=== PATIENT | female | born 1970 ===

== ENCOUNTER 2016-08-30 15:00 | Observation (INO) | payer BC, OTHER ==
[2016-08-30] MEDS ORDERED: HYDROmorphone 1 MG/ML Syringe IV ONE ×2 (15:08→16:01)
--- NOTE | 2016-08-30 15:11 | EDM.PDOC ---
ED HPI GENERAL MEDICAL PROBLEM - General Chief Complaint: Upper Extremity Injury/Pain Stated Complaint: POSSIBLE LEFT ARM FRACTURE Time Seen by Provider: 08/30/16 15:05 Source of Information: Reports: Patient, EMS History Limitations: Reports: No Limitations - History of Present Illness INITIAL COMMENTS - FREE TEXT/NARRATIVE: HISTORY AND PHYSICAL: History of present illness: [Patient comes to the emergency room via EMS with complaints of L arm pain. She was washing her feet in the bathroom sink when she slipped and fell landing on her left forearm. She complains of pain and deformity to her forearm. Has had bleeding from a laceration. Occurred just prior to arrival in the ER. She denies hitting her head, losing consciousness, any other injuries. Has not had anything to eat or drink today.] Review of systems: As per history of present illness and below otherwise all systems reviewed and negative. Past medical history: As per history of present illness and as reviewed below otherwise noncontributory. Surgical history: As per history of present illness and as reviewed below otherwise noncontributory. Social history: No reported history of drug or alcohol abuse. Family history: As per history of present illness and as reviewed below otherwise noncontributory. Physical exam: HEENT: Atraumatic, normocephalic. Lungs: Clear to auscultation bilaterally. Cardiac: Regular rate rhythm. Extremities: Left forearm swelling and deformity. 1 cm laceration to radial mid left forearm. Is placed in an immobilizing device prior to arrival in the ER. Refill less than 2 seconds. Neuro: Awake, alert, oriented. Motor and sensory unremarkable throughout. Diagnostics: [X-ray left forearm] Therapeutics: [Dilaudid 0.5 mg IV, Dilaudid 1mg IV, Ativan 1mg IV] Impression: [Open Radial and ulnar distal mid shaft fractures, L forearm] Plan: [Dr. Berenice Quezada, orthopedist franchise field consultant, is contacted at 1600. OLIVA Currie , in the ER to evaluate patient at [phone].] Definitive disposition and diagnosis as appropriate pending reevaluation and review of above. Left Arm Pain Score (Numeric/FACES): 9 - Related Data Allergies Allergy/AdvReac Type Severity Reaction Status Date / Time Salicylates * [Salicylates] Allergy Fainting Verified 04/28/14 14:55 Sulfa (Sulfonamide Allergy Disorientat Verified 02/08/14 15:29 Antibiotics) ion Home Meds: Home Meds . [No Known Home Meds] 02/08/14 [History] Social & Family History - Tobacco Use Smoking Status *Q: Never Smoker Second Hand Smoke Exposure: No - Alcohol Use Days Per Week of Alcohol Use: 0 Number of Drinks Per Day: 0 Total Drinks Per Week: 0 - Recreational Drug Use Recreational Drug Use: No Drug Use in Last 12 Months: Yes Review of Systems - Review of Systems Review Of Systems: ROS reveals no pertinent complaints other than HPI. ED EXAM, GENERAL - Physical Exam Exam: See Below Course - Vital Signs Last Recorded V/S: Last Vital Signs Temp 99.0 F 08/30/16 15:07 Pulse 78 08/30/16 15:07 Resp 18 08/30/16 15:07 BP 139/93 H 08/30/16 15:07 Pulse Ox 98 08/30/16 15:07 - Orders/Labs/Meds Meds: Medications Discontinued Medications Generic Name Dose Route Start Last Admin Trade Name Gatito PRN Reason Stop Dose Admin Hydromorphone HCl 0.5 mg 08/30/16 15:08 08/30/16 15:14 Dilaudid IV 08/30/16 15:09 0.5 mg ONETIME ONE Administration Hydromorphone HCl 1 mg 08/30/16 16:01 08/30/16 16:05 Dilaudid IV 08/30/16 16:02 1 mg ONETIME ONE Administration Lorazepam 1 mg 08/30/16 16:00 08/30/16 16:06 Ativan IVPUSH 08/30/16 16:01 1 mg ONETIME ONE Administration Departure - Departure Time of Disposition: 16:25 Disposition: Admitted As Inpatient 66 Clinical Impression: Forearm fracture - Discharge Information Forms: ED Department Discharge
[2016-08-30] MEDS ORDERED: LORazepam 2 MG/ML MDV IVPUSH ONE (16:00)
--- NOTE | 2016-08-30 16:02 | CR ---
EXAMINATION: Left forearm HISTORY: Fall COMPARISON: None TECHNIQUE: 2 views FINDINGS: There are displaced overlapping mid to distal radius and ulna diaphysis fractures noted. A pproximately 2.6 cm of overlap of the radial component. Remaining osseous structures and joint space s appear grossly intact. Mild overlying soft tissue swelling. IMPRESSION: Displaced and overlapping radius and ulna diaphysis fractures.
--- NOTE | 2016-08-30 16:36 | PCM.HP ---
<Michelle Ratliff R - Last Filed: 08/30/16 16:30> H&P History of Present Illness - General Date of Service: 08/30/16 Source of Information: Patient, Family History Limitations: Reports: Other (drowsy from pain/anxiety medications given in ED) - History of Present Illness Initial Comments - Free Text/Narative: Patient is a 46 year old right hand dominant female who sustained an injury to her left upper extremity when she fell in her home. She was trying to wash her foot in the kitchen sink when she fell. She had immediate pain and deformity to the left upper extremity. She was brought to the emergency department by EMS services. A punctate wound was noted over the ulnar aspect of her forearm. X- rays of the left forearm were obtained which shows displaced, angulated fractures at the junction of the middle and distal third of the radius and the distal one third ulna. Orthopedic consult was obtained. Patient denies previous injury to her left upper extremity. She does not complain of distal paralysis and paresthesias. Onset of Symptoms: Reports: Today, Sudden Location: Reports: Upper Extremity, Left Quality: Reports: Sharp, Stabbing Severity: Severe Improves with: Reports: Medication Worsens with: Reports: Movement Context: Reports: Trauma Left Arm Pain Score (Numeric/FACES): 9 - Related Data Allergies/Adverse Reactions: Allergies Allergy/AdvReac Type Severity Reaction Status Date / Time Salicylates * [Salicylates] Allergy Fainting Verified 04/28/14 14:55 Sulfa (Sulfonamide Allergy Disorientat Verified 02/08/14 15:29 Antibiotics) ion Home Medications: Home Meds . [No Known Home Meds] 02/08/14 [History] Past Medical History HEENT History: Reports: None Cardiovascular History: Reports: None Respiratory History: Reports: None Gastrointestinal History: Reports: Other (See Below) Other Gastrointestinal History: ulcerative colitis/crohns, currently not on any medications for this Genitourinary History: Reports: None WANT AD RECEIVER History: Reports: None Musculoskeletal History: Reports: Fracture Neurological History: Reports: None Psychiatric History: Reports: Anxiety (prescribed zoloft, does not take) Endocrine/Metabolic History: Reports: None Hematologic History: Reports: None Immunologic History: Reports: None Oncologic (Cancer) History: Reports: None Dermatologic History: Reports: None - Infectious Disease History Infectious Disease History: Reports: None - Past Surgical History Head Surgeries/Procedures: Reports: None HEENT Surgical History: Reports: None Cardiovascular Surgical History: Reports: None Respiratory Surgical History: Reports: None GI Surgical History: Reports: None Female Surgical History: Reports: Breast Biopsy, Other (See Below) (excision of uterine fibromas per ) Endocrine Surgical History: Reports: None Neurological Surgical History: Reports: None Musculoskeletal Surgical History: Reports: None Oncologic Surgical History: Reports: None Dermatological Surgical History: Reports: None Social & Family History - Family History Family Medical History: Noncontributory - Tobacco Use Smoking Status *Q: Never Smoker Second Hand Smoke Exposure: No - Caffeine Use Caffeine Use: Reports: Soda - Alcohol Use Days Per Week of Alcohol Use: 0 Number of Drinks Per Day: 0 Total Drinks Per Week: 0 - Recreational Drug Use Recreational Drug Use: No Drug Use in Last 12 Months: Yes H&P Review of Systems - Review of Systems: Review Of Systems: See Below General: Reports: No Symptoms HEENT: Reports: No Symptoms Pulmonary: Reports: No Symptoms Cardiovascular: Reports: No Symptoms Gastrointestinal: Reports: No Symptoms Genitourinary: Reports: No Symptoms Musculoskeletal: Reports: Arm Pain Skin: Reports: No Symptoms Psychiatric: Reports: No Symptoms Neurological: Reports: No Symptoms Hematologic/Lymphatic: Reports: No Symptoms Immunologic: Reports: No Symptoms Exam - Exam Exam: See Below - Vital Signs Vital Signs: Last Vital Signs Temp 99.0 F 08/30/16 15:07 Pulse 72 08/30/16 16:23 Resp 14 08/30/16 16:23 BP 122/76 08/30/16 16:23 Pulse Ox 93 L 08/30/16 16:23 Weight: 102.058 kg - Exam General: Alert, Oriented, Other (drowsy from pain/anxiety medications given in ED) Neck: Supple Cardiovascular: Regular Rate, Regular Rhythm Extremities: Arm Pain, Other (Exam of left upper extremity reveals punctate wound over ulnar aspect of distal one third forearm. Obvious deformity with apex dorsal angulation at distal one third forearm. ROM at wrist/elbow deferred. Nontender with palpation of medial and lateral epicondyles. AIN, PIN, ulnar motor intact. Radial, ulnar, median sensation intact. Radial pulse 2+. ) Peripheral Pulses: 2+: Radial (L) Neuro Extensive - Mental Status: Alert, Oriented x3 - Patient Data Imaging Impressions Last 24 hrs: AP and lateral of left forearm done today in ED reveals displaced, angulated middle to distal one third radius fracture and displaced, angulated distal one third ulna fracture. *Q Meaningful Use (ADM) - VTE *Q VTE Criteria *Q: - Stroke *Q Stroke Criteria *Q: - AMI *Q AMI Criteria *Q: Problem List Initiated/Reviewed/Updated: Yes Orders Last 24hrs: Active Orders 24 hr Category Date Time Status Vaccines to be Administered [RC] PER UNIT ROUTINE Care 08/30/16 16:24 Ordered Nothing per Oral Now Diet [DIET] Diet 08/30/16 Breakfast Ordered Diphth,Pertuss(Acell),Tet Vac [Adacel] Med 08/30/16 16:24 Once 0.5 ml IM .ONCE ONE Lactated Ringers @ 100 MLS/HR(1000ml) Med 08/30/16 16:30 Ordered Lactated Ringers [Ringers, Lactated] 1,000 ml IV ASDIRECTED ceFAZolin [Ancef] 2 gm Med 08/30/16 16:30 Ordered Premix Bag 1 bag IV ONCALL Medication Orders Diphtheria/Tetanus/Acell Pertussis (Adacel) 0.5 ml IM .ONCE ONE Stop: 08/30/16 16:25 Lactated Ringer's (Ringers, Lactated) 1,000 mls @ 100 mls/hr IV ASDIRECTED ALEX Cefazolin Sodium/Dextrose 2 gm (/ Premix) 50 mls @ 100 mls/hr IV ONCALL ALEX Assessment/Plan Comment:: assessment: open left forearm fracture, distal one third radius and ulna plan: discussed x-ray findings with patient and . Recommending ED of open left forearm fracture with ORIF left radius and ulna. NPO now LR, pre-op ancef pt/ unsure of last tetanus, will update today Will plan on performing after Dr. Quezada finishes clinic, she will add risks and goals prior to procedure Will keep overnight for IV abx and pain management patient and agree with plan <Berenice Quezada - Last Filed: 08/30/16 17:04> Exam - Vital Signs Vital Signs: Last Vital Signs Temp 99.0 F 08/30/16 15:07 Pulse 74 08/30/16 16:34 Resp 15 08/30/16 16:34 BP 117/68 08/30/16 16:34 Pulse Ox 97 08/30/16 16:34 *Q Meaningful Use (ADM) - VTE *Q VTE Criteria *Q: - Stroke *Q Stroke Criteria *Q: - AMI *Q AMI Criteria *Q: Orders Last 24hrs: Active Orders 24 hr Category Date Time Status Vaccines to be Administered [RC] PER UNIT ROUTINE Care 08/30/16 16:24 Active Nothing per Oral Now Diet [DIET] Diet 08/30/16 Breakfast Active Lactated Ringers [Ringers, Lactated] 1,000 ml Med 08/30/16 16:30 Active IV ASDIRECTED ceFAZolin [Ancef] 2 gm Med 08/30/16 16:40 Active Premix Bag 1 bag IV ONCALL Medication Orders Lactated Ringer's (Ringers, Lactated) 1,000 mls @ 100 mls/hr IV ASDIRECTED ALEX Last Admin: 08/30/16 16:42 Dose: 100 mls/hr Cefazolin Sodium/Dextrose 2 gm (/ Premix) 50 mls @ 100 mls/hr IV ONCALL ALEX Last Admin: 08/30/16 16:42 Dose: 100 mls/hr Assessment/Plan Comment:: Pt seen and examined. Agree with above note. XR reviewed which shows both bone forearm fracture with displacement. Small open laceration over ulna fx, c/w open fracture. Tetanus and Ancef given in ER. Recommend surgical treatment: ED left ulna fracture to bone and ORIF left both bone forearm fracture. Procedure and post operative course d/w patient and . Risks of surgery include, but are not limited to, infection, n/v injury, malunion, nonunion, stiffness, and anesthetic complications. Patient agrees to proceed. Will plan to do tonight.
[2016-08-30] MEDS ORDERED: ceFAZolin 2 GM in Premix Bag 1 BAG IV SCH (16:40)
[2016-08-30] MEDS: Lactated Ringers 1,000 ML IV SCH ×2 (16:42→23:26)
[2016-08-30] MEDS ORDERED: Diphtheria,Pertussis(Acell),Tetanus Vaccine 0.5 ML Syringe IM ONE (16:45)
[2016-08-30] MEDS ORDERED: Bupivacaine 0.25%/EPINEPHrine 1:200,000 10 ML SDV ONE (17:13)
--- NOTE | 2016-08-30 17:29 | PCM.PREANE ---
Preanesthetic Assessment - Anesthesia/Transfusion/Family Hx Anesthesia History: Prior Anesthesia Without Reaction Other Type of Anesthesia Reaction Comment: Reports had bad experience Sensitive to medication,"could not breath" x 2 - Review of Systems General: No Symptoms Pulmonary: No Symptoms Cardiovascular: No Symptoms Gastrointestinal: No Symptoms Neurological: No Symptoms Other: Reports: None - Physical Assessment O2 Sat by Pulse Oximetry: 97 Respiratory Rate: 15 Vital Signs: Last Vital Signs Temp 99.0 F 08/30/16 15:07 Pulse 74 08/30/16 16:34 Resp 15 08/30/16 16:34 BP 117/68 08/30/16 16:34 Pulse Ox 97 08/30/16 16:34 Height: 5 ft 3 in Weight: 102.058 kg ASA Class: 2E Mental Status: Alert & Oriented x3 Airway Class: Mallampati = 1 Dentition: Reports: Normal Dentition Thyro-Mental Finger Breadths: 3 Mouth Opening Finger Breadths: 3 ROM/Head Extension: Full Lungs: Clear to Auscultation, Normal Respiratory Effort Cardiovascular: Regular Rate, Regular Rhythm - Allergies Allergies/Adverse Reactions: Allergies Allergy/AdvReac Type Severity Reaction Status Date / Time Salicylates * [Salicylates] Allergy Fainting Verified 04/28/14 14:55 Sulfa (Sulfonamide Allergy Disorientat Verified 02/08/14 15:29 Antibiotics) ion - Acknowledgements Anesthesia Type Planned: General Anesthesia Pt an Appropriate Candidate for the Planned Anesthesia: Yes Alternatives and Risks of Anesthesia Discussed w Pt/Guardian: Yes Pt/Guardian Understands and Agrees with Anesthesia Plan: Yes PreAnesthesia Questionnaire HEENT History: Reports: None Cardiovascular History: Reports: Other (See Below) (PSVT - uncontrolled, happens a few times a week.) Respiratory History: Reports: None Gastrointestinal History: Reports: GERD (occ.), Other (See Below) Other Gastrointestinal History: ulcerative colitis/crohns, currently not on any medications for this Genitourinary History: Reports: None PRESCHOOL TEACHER'S ASSISTANT History: Reports: None Musculoskeletal History: Reports: Fracture (Lt radius/ulna) Neurological History: Reports: None Psychiatric History: Reports: Anxiety (severe, prescribed zoloft, does not take) Endocrine/Metabolic History: Reports: Obesity/BMI 30+ Hematologic History: Reports: None Immunologic History: Reports: None Oncologic (Cancer) History: Reports: None Dermatologic History: Reports: None - Infectious Disease History Infectious Disease History: Reports: None - Past Surgical History Head Surgeries/Procedures: Reports: None HEENT Surgical History: Reports: None Cardiovascular Surgical History: Reports: None Respiratory Surgical History: Reports: None GI Surgical History: Reports: None Female Surgical History: Reports: Breast Biopsy, Other (See Below) (excision of uterine fibromas per ) Endocrine Surgical History: Reports: None Neurological Surgical History: Reports: None Musculoskeletal Surgical History: Reports: None Oncologic Surgical History: Reports: None Dermatological Surgical History: Reports: None - SUBSTANCE USE Smoking Status *Q: Never Smoker Second Hand Smoke Exposure: No Days Per Week of Alcohol Use: 0 Number of Drinks Per Day: 0 Total Drinks Per Week: 0 Recreational Drug Use History: No - HOME MEDS Home Medications: Home Meds . [No Known Home Meds] 02/08/14 [History] - CURRENT (IN HOUSE) MEDS Current Meds: Current Medications Lactated Ringer's (Ringers, Lactated) 1,000 mls @ 100 mls/hr IV ASDIRECTED [facility] Last Admin: 08/30/16 16:42 Dose: 100 mls/hr Cefazolin Sodium/Dextrose 2 gm (/ Premix) 50 mls @ 100 mls/hr IV ONCALL [facility] Last Admin: 08/30/16 16:42 Dose: 100 mls/hr Discontinued Medications Bupivacaine HCl/Epinephrine Bitart (Marcaine 0.25%/Epinephrine 1:200,000) Confirm Administered Dose 10 ml .ROUTE .STK-MED ONE Stop: 08/30/16 17:14 Diphtheria/Tetanus/Acell Pertussis (Adacel) 0.5 ml IM .ONCE ONE Stop: 08/30/16 16:46 Last Admin: 08/30/16 16:41 Dose: 0.5 ml Hydromorphone HCl (Dilaudid) 0.5 mg IV ONETIME ONE Stop: 08/30/16 15:09 Last Admin: 08/30/16 15:14 Dose: 0.5 mg Hydromorphone HCl (Dilaudid) 1 mg IV ONETIME ONE Stop: 08/30/16 16:02 Last Admin: 08/30/16 16:05 Dose: 1 mg Lorazepam (Ativan) 1 mg IVPUSH ONETIME ONE Stop: 08/30/16 16:01 Last Admin: 08/30/16 16:06 Dose: 1 mg
[2016-08-30] MEDS ORDERED: Succinylcholine/Normal Saline 200 MG/10 ML Syringe ONE (17:41)
[2016-08-30] MEDS ORDERED: Ondansetron 4 MG/2 ML SDV ONE (17:41)
[2016-08-30] MEDS ORDERED: Lidocaine 2% 5 ML SDV ONE (17:41)
[2016-08-30] MEDS ORDERED: Rocuronium 10 MG/ML 10 ML Syringe ONE (17:41)
[2016-08-30] MEDS ORDERED: Midazolam 1 MG/ML 2 ML SDV ONE (17:42)
[2016-08-30] MEDS ORDERED: fentaNYL 250 MCG/5 ML SDV ONE (17:42)
[2016-08-30] MEDS ORDERED: Propofol 200 MG/20 ML SDV ONE (17:42)
[2016-08-30] MEDS ORDERED: HYDROmorphone 2 MG/ML Syringe ONE (18:51)
[2016-08-30] MEDS ORDERED: Ondansetron 4 MG/2 ML SDV IVPUSH PRN (19:42)
[2016-08-30] MEDS ORDERED: HYDROmorphone 2 MG/ML Syringe IVPUSH PRN (19:42)
[2016-08-30] MEDS ORDERED: Ketorolac 30 MG/ML SDV IVPUSH PRN (19:42)
[2016-08-30] MEDS ORDERED: Aluminum Hydroxide/Magnesium Hydroxide/Simethicone Susp 30 ML Cup PO PRN (19:42)
[2016-08-30] MEDS ORDERED: diphenhydrAMINE 25 MG Cap PO PRN (19:42)
[2016-08-30] MEDS ORDERED: LORazepam 2 MG/ML MDV IVPUSH PRN (19:47)
--- NOTE | 2016-08-30 19:50 | PCM.OPNOTE ---
- General Post-Op/Procedure Note Date of Surgery/Procedure: 08/30/16 Operative Procedure(s): 1. ED left open ulna fracture. 2. ORIF left ulna/ radius fracture Post-Op Diagnosis: 1. Gr 1 open left ulna fracture. 2. left radius/ulna fracture Anesthesia Technique: General ET Tube Primary Surgeon: Berenice Quezada Biology Tutor: Michelle Ratliff EBL in mLs: 20 Condition: Stable Free Text/Narrative:: tt=51 min #[id number]
[2016-08-30] MEDS ORDERED: fentaNYL 100 MCG/2 ML SDV IVPUSH PRN (19:58)
--- NOTE | 2016-08-30 21:04 | PCM.POSTAN ---
POST ANESTHESIA ASSESSMENT - MENTAL STATUS Mental Status: Alert, Oriented - VITAL SIGNS Pulse Rate: 89 SaO2: 94 Resp Rate: 18 Blood Pressure: 142/92 - RESPIRATORY Respiratory Status: respiratory rate WNL, Airway Patent, O2 Saturation Stable - CARDIOVASCULAR CV Status: Pulse Rate WNL, Blood Pressure Stable - GASTROINTESTINAL GI Status: No Symptoms - PAIN Pain Score: 1 - POST OP HYDRATION Hydration Status: Adequate & Stable
[2016-08-30] MEDS ORDERED: Metoclopramide 10 MG/2 ML SDV ONE (21:28)
--- NOTE | 2016-08-30 22:44 | PCM.SN ---
- Free Text/Narrative Note: See Post Anesthesia Assessment for detailed events. Pt has BiPAP ordered PRN and will remain at the bedside should she feel she can tolerate it throughout the night.
[2016-08-30] MEDS: Docusate Sodium 100 MG Cap PO SCH ×2 (23:25→23:49)
[2016-08-30] MEDS: ceFAZolin 2 GM in Premix Bag 1 BAG IV SCH (23:27)
[2016-08-31] MEDS: Acetaminophen/HYDROcodone 325-10 MG Tab PO PRN ×2 (01:14→06:04)
--- NOTE | 2016-08-31 03:55 | OR ---
SURGEON: Berenice Quezada MD DATE OF PROCEDURE: 08/30/2016 PREOPERATIVE DIAGNOSES: 1. Grade 1 open left ulna fracture. 2. Right midshaft radius fracture. POSTOPERATIVE DIAGNOSES: 1. Grade 1 open left ulna fracture. 2. Right midshaft radius fracture. PROCEDURE: 1. Excisional debridement to bone, left open ulna fracture. 2. Open reduction and internal fixation, left radius and ulna. CLINICAL INSTRUCTOR: Michelle Ratliff PA-C. ANESTHESIA: General. ESTIMATED BLOOD LOSS: 20 mL. TOURNIQUET TIME: 51 minutes. COMPLICATIONS: None. DVT PROPHYLAXIS: PAS boot to bilateral lower extremities. IMPLANTS USED: Two Kiko LC-DCP plates with 3.5 mm nonlocking screws. BRIEF HISTORY: Carie is a 46-year-old female who injured her left upper extremity today after a fall. She complained of immediate pain and deformity in her left upper extremity. She was seen in the emergency room. X-rays were obtained, which showed a midshaft fracture of the left radius and ulna. She was found to have a puncture wound at the site of the ulna fracture as well. At that time, I recommended surgical intervention. She was given Ancef and a tetanus booster in the emergency room. The risks and goals of procedure were discussed with the patient and documented preoperatively. She agreed to proceed. DESCRIPTION OF PROCEDURE: The patient was properly identified and brought to the operating room. General anesthesia was administered. After adequate anesthesia was obtained, she was transferred to the operating room table. A well-padded tourniquet was applied to the left upper extremity. The left upper extremity was then prepped in standard fashion using Betadine solution. It was then sterilely draped. A time - out was performed to ensure correct site and procedure. Preoperative antibiotics were given. The surgical site had been marked preoperatively. The tourniquet was then inflated. The puncture wound over the site of the ulna fracture measured less than 1 cm. This was extended in a proximal and distal fashion. The subcutaneous tissues were dissected. The interval between ECU and FCU was identified and was developed. The fracture had done some soft tissue dissection on its own. The bone ends were then identified and delivered into the wound. 6 L of normal saline were irrigated through the wound using a [employer] billing representative. At the completion, the wound bed appeared clean and there was no evidence of external contamination. I then turned my attention to the radius. Volar incision was made over the FCR tendon. The subcutaneous tissues were incised. The FCR tendon was identified and the sheath was also incised. The fracture again had performed a majority of the soft tissue dissection and the fracture ends were easily visualized. Pronator quadratus was identified and incised. There was a large rent in this from the fracture. I was able to subperiosteally dissect both proximal and distal to the fracture site. The wound was copiously irrigated to remove fracture hematoma. The bone ends were then cleaned of fracture hematoma. Bone reduction clamps were placed on each and the radius was brought into position. The fracture pattern allowed it to be keyed in with acceptable rotation. I elected to proceed with a 6-hole LC-DCP plate. The center of the plate was centered at the fracture site. Three screws were placed proximal and distal to the fracture site. X-ray confirmed adequate reduction of the fracture with acceptable hardware. I then turned my attention back to the ulna. Bone reduction clamps were again placed on the ends of the bone and the fracture was reduced. It was held in a reduced position as the plate was placed. There was no 6-hole plate available and they elected to use a 7-hole plate. 3.5 mm screws were placed proximal and distal to the fracture site. It should be noted that on both the radius and ulna, a compression guide was used to allow further compression at the fracture site. Final C-arm images confirmed nearly anatomic position of the fracture with adequate position of the hardware. The wounds were then copiously irrigated with saline solution. The deep tissues were closed over the ulna with reapproximation using 0 Vicryl. The subcutaneous tissues were closed with 2-0 Vicryl and the skin was closed with a running Monocryl suture. 3-0 Vicryl and a running Monocryl suture was also used for the volar incision. Compartments were soft at the completion of the procedure. The tourniquet was deflated prior to wound closure and no significant bleeding was noted. Xeroform gauze was placed over the wound and a bulky dressing was applied. She was placed in a well- padded volar splint. She was awakened from her anesthetic and transferred back to the operating room cart. She was brought to recovery room in stable condition. All needle and sponge counts were correct. FERCHO / MODL /[id number] MTDLory
[2016-08-31] MEDS: ceFAZolin 2 GM in Premix Bag 1 BAG IV SCH (06:10)
--- NOTE | 2016-08-31 06:56 | PCM48HPAN ---
Post Anesthesia Note - EVALUATION WITHIN 48HRS OF ANESTHETIC Vital Signs in Normal Range: Yes Patient Participated in Evaluation: Yes Respiratory Function Stable: Yes Airway Patent: Yes Cardiovascular Function Stable: Yes Hydration Status Stable: Yes Pain Control Satisfactory: Yes Nausea and Vomiting Control Satisfactory: Yes Mental Status Recovered: Yes - COMMENTS/OBSERVATIONS Free Text/Narrative:: Pt is more awake this morning but states she is still tired. She has been able to ambulate through the night to the bathroom. Nursing states she has required oxygen while she is asleep. Nursing also noted a couple of incidents where the patients SpO2 would drop into the mid to low 80's while on 2LPM NC. LUIS CARLOS has occurred less through the night with the patient sleeping on her side rather than her back. Would recommend LUIS CARLOS testing and follow-up on discharge with primary care. (See Post anesthesia assessment for detailed events)
[2016-08-31] MEDS: Docusate Sodium 100 MG Cap PO SCH (08:16)
[2016-08-31 08:27] VITALS: BP 91/52
--- NOTE | 2016-08-31 08:29 | PCM.SURGPN ---
- General Info Date of Service: 08/31/16 POD#: 1 Functional Status: Reports: Pain Controlled - Review of Systems General: Reports: No Symptoms HEENT: Reports: No Symptoms Pulmonary: Reports: No Symptoms Cardiovascular: Reports: No Symptoms Gastrointestinal: Reports: No Symptoms Genitourinary: Reports: No Symptoms Skin: Reports: No Symptoms Neurological: Reports: No Symptoms Psychiatric: Reports: No Symptoms Systems Review Comment:: Patient doing well. Was admitted to ICU after surgery due to decreased O2 sats. These have improved. Occasional desaturation with sleeping--patient has h/o sleep apnea. States pain is well controlled. No other complaints. Denies distal paralysis, paresthesias. - Patient Data Vitals - most recent: Last Vital Signs Temp 98.4 F 08/31/16 04:00 Pulse 95 08/31/16 04:00 Resp 10 L 08/31/16 04:00 BP 103/61 08/31/16 04:00 Pulse Ox 96 08/31/16 04:00 Weight - most recent: 110 kg I&O - last 24 hours: Intake & Output 08/30/16 08/31/16 08/31/16 22:59 06:59 14:59 Intake Total 1700 150 Output Total 200 Balance 1700 -50 Med Orders - Current: Current Medications Hydrocodone Bitart/Acetaminophen ([place] 325-10 Mg) 1 - 2 tab PO Q4H PRN PRN Reason: Pain Last Admin: 08/31/16 06:04 Dose: 1 tab Al Hydroxide/Mg Hydroxide (Mag-Al Plus) 30 ml PO Q4H PRN PRN Reason: indigestion Diphenhydramine HCl (Benadryl) 25 - 50 mg PO Q6H PRN PRN Reason: Itching Docusate Sodium (Colace) 100 mg PO BID [facility] Last Admin: 08/31/16 08:16 Dose: Not Given Fentanyl (Sublimaze) 50 mcg IVPUSH Q5M PRN PRN Reason: Pain (severe 7-10) Stop: 08/31/16 19:58 Hydromorphone HCl (Dilaudid) 0.5 - 1 mg IVPUSH Q3H PRN PRN Reason: Pain Lactated Ringer's (Ringers, Lactated) 1,000 mls @ 100 mls/hr IV ASDIRECTED [facility] Last Admin: 08/30/16 23:26 Dose: 100 mls/hr Cefazolin Sodium/Dextrose 2 gm (/ Premix) 50 mls @ 100 mls/hr IV ONCALL ALEX Last Admin: 08/30/16 16:42 Dose: 100 mls/hr Ketorolac Tromethamine (Toradol) 30 mg IVPUSH Q6H PRN PRN Reason: Pain Last Admin: 08/31/16 06:20 Dose: 30 mg Lorazepam (Ativan) 1 mg IVPUSH Q6H PRN PRN Reason: Agitation Ondansetron HCl (Zofran) 4 mg IVPUSH Q6HR PRN PRN Reason: NAUSEA/VOMITING Discontinued Medications Bupivacaine HCl/Epinephrine Bitart ([place] 0.25%/Epinephrine 1:200,000) Confirm Administered Dose 10 ml .ROUTE .STK-MED ONE Stop: 08/30/16 17:14 Diphtheria/Tetanus/Acell Pertussis (Adacel) 0.5 ml IM .ONCE ONE Stop: 08/30/16 16:46 Last Admin: 08/30/16 16:41 Dose: 0.5 ml Fentanyl (Sublimaze) Confirm Administered Dose 250 mcg .ROUTE .STK-MED ONE Stop: 08/30/16 17:43 Hydromorphone HCl (Dilaudid) 0.5 mg IV ONETIME ONE Stop: 08/30/16 15:09 Last Admin: 08/30/16 15:14 Dose: 0.5 mg Hydromorphone HCl (Dilaudid) 1 mg IV ONETIME ONE Stop: 08/30/16 16:02 Last Admin: 08/30/16 16:05 Dose: 1 mg Hydromorphone HCl (Dilaudid) Confirm Administered Dose 2 mg .ROUTE .STK-MED ONE Stop: 08/30/16 18:52 Cefazolin Sodium/Dextrose 2 gm (/ Premix) 50 mls @ 100 mls/hr IV Q8H ALEX Stop: 08/31/16 07:29 Last Admin: 08/31/16 06:10 Dose: 100 mls/hr Lidocaine (Xylocaine-Mpf 2%) Confirm Administered Dose 5 ml .ROUTE .STK-MED ONE Stop: 08/30/16 17:42 Lorazepam (Ativan) 1 mg IVPUSH ONETIME ONE Stop: 08/30/16 16:01 Last Admin: 08/30/16 16:06 Dose: 1 mg Metoclopramide HCl (Reglan) Confirm Administered Dose 10 mg .ROUTE .STK-MED ONE Stop: 08/30/16 21:29 Midazolam HCl (Versed 1 Mg/Ml) Confirm Administered Dose 2 mg .ROUTE .STK-MED ONE Stop: 08/30/16 17:43 Ondansetron HCl (Zofran) Confirm Administered Dose 4 mg .ROUTE .STK-MED ONE Stop: 08/30/16 17:42 Propofol (Diprivan 20 Ml) Confirm Administered Dose 200 mg .ROUTE .STK-MED ONE Stop: 08/30/16 17:43 Rocuronium [place] (Zemuron) Confirm Administered Dose 100 mg .ROUTE .STK-MED ONE Stop: 08/30/16 17:42 Succinylcholine Chloride (Succinylcholine In Ns Pf) Confirm Administered Dose 200 mg .ROUTE .STK-MED ONE Stop: 08/30/16 17:42 - Exam Wound/Incisions: dressing dry and intact Quality Assessment: supplemental oxygen General: alert, oriented Neck: supple Lungs: Normal Respiratory Effort Cardiovascular: Regular Rate Neurological: no new focal deficit Psy/Mental Status: alert, normal affect, normal mood Physical Findings Comment:: Exam of LUE shows splint and dressing to be intact and dry. AIN/PIN/uln motor intact. Rad/uln/med sensation intact. Cap refill <2sec. - Problem List Review Problem List Initiated/Reviewed/Updated: Yes - My Orders Last 24 Hours: Active Orders 24 hr Category Date Time Status Admission Status [Patient Status] [ADT] Routine ADT 08/30/16 21:00 Active BIPAP Adult [RT BiPAP/CPAP] [RC] ASDIRECTED Care 08/30/16 22:42 Active RT BiPAP/CPAP [RC] ASDIRECTED Care 08/30/16 22:38 Active Medication Orders Hydrocodone Bitart/Acetaminophen ([place] 325-10 Mg) 1 - 2 tab PO Q4H PRN PRN Reason: Pain Last Admin: 08/31/16 06:04 Dose: 1 tab Admin: 08/31/16 01:14 Dose: 1 tab Al Hydroxide/Mg Hydroxide (Mag-Al Plus) 30 ml PO Q4H PRN PRN Reason: indigestion Diphenhydramine HCl (Benadryl) 25 - 50 mg PO Q6H PRN PRN Reason: Itching Docusate Sodium (Colace) 100 mg PO BID [facility] Last Admin: 08/31/16 08:16 Dose: Not Given Admin: 08/30/16 23:49 Dose: Not Given Fentanyl (Sublimaze) 50 mcg IVPUSH Q5M PRN PRN Reason: Pain (severe 7-10) Stop: 08/31/16 19:58 Hydromorphone HCl (Dilaudid) 0.5 - 1 mg IVPUSH Q3H PRN PRN Reason: Pain Lactated Ringer's (Ringers, Lactated) 1,000 mls @ 100 mls/hr IV ASDIRECTED [facility] Last Admin: 08/30/16 23:26 Dose: 100 mls/hr Infusion: 08/30/16 23:26 Dose: 100 mls/hr Admin: 08/30/16 16:42 Dose: 100 mls/hr Cefazolin Sodium/Dextrose 2 gm (/ Premix) 50 mls @ 100 mls/hr IV ONCALL [facility] Last Admin: 08/30/16 16:42 Dose: 100 mls/hr Ketorolac Tromethamine (Toradol) 30 mg IVPUSH Q6H PRN PRN Reason: Pain Last Admin: 08/31/16 06:20 Dose: 30 mg Lorazepam (Ativan) 1 mg IVPUSH Q6H PRN PRN Reason: Agitation Ondansetron HCl (Zofran) 4 mg IVPUSH Q6HR PRN PRN Reason: NAUSEA/VOMITING - Plan Plan (Free Text/Narrative):: 1. complete 24H IV abx for open fracture 2. discharge home after if pain controlled with po meds and O2 saturation acceptable 3. f/u 10-14 days for re-evaluation 4. plan discussed with patient and she agrees
--- NOTE | 2016-09-03 09:23 | CR ---
EXAMINATION: Radius and ulna HISTORY: Fracture COMPARISON: 08/30/2016 TECHNIQUE: 4 fluoroscopic images provided. FINDINGS/IMPRESSION: Postoperative control films demonstrate screw and plate fixation of radius and ulna diaphysis fractures in good position and alignment.
== END 2016-08-31 13:05 | disposition home or self-care (01) ==
LOC: MW.ED 15:00 → MW.SDS 16:33 → MW.ICU 21:00
PROVIDERS: ADMIT Orthopaedic Surgery; ATTEND Orthopaedic Surgery
DX: S52.202B Unspecified fracture of shaft of left ulna, initial encounter for open fracture type I or II (principal); S52.301A Unspecified fracture of shaft of right radius, initial encounter for closed fracture; F41.9 Anxiety disorder, unspecified; W19.XXXA Unspecified fall, initial encounter; Y93.9 Activity, unspecified; Y92.009 Unspecified place in unspecified non-institutional (private) residence as the place of occurrence of the external cause; Z88.2 Allergy status to sulfonamides; Z88.8 Allergy status to other drugs, medicaments and biological substances; Z98.890 Other specified postprocedural states
CPT/HCPCS: 11012; 25575; 73090; 76000; 90471; 90715; 94660; 96365; 96375; 96376; 99284; A9270; C1713; C1776; J0690; J1170; J1885; J2060; J2405; J2765; J3010; J7120; 01740; G0378; J2250; J2704